=== PATIENT | male | born 1970 | race Caucasian/White ===

== ENCOUNTER 2016-12-27 12:58 | Emergency (ER) | payer MEDICAID ==
[2016-12-27 14:13] LABS: ALBUMIN 3.9 g/dL (3.4-5.0); ALKALINE PHOSPHATASE 64 U/L (46-116); ALT (SGPT) 52 U/L (10-68); BILIRUBIN - TOTAL 0.32 mg/dL (0.2-1.3); CALC OSMOLALITY 277 mosm/kg (275-300); CALCIUM 8.7 mg/dL (8.5-10.1); CARBON DIOXIDE 29.8 mmol/L (21.0-32.0); CHLORIDE - SERUM 104 mmol/L (98-107); GLUCOSE 97 mg/dL (74-106); POTASSIUM - SERUM 4.3 mmol/L (3.5-5.1); PROTEIN - SERUM 7.5 g/dL (6.4-8.2); SODIUM 139 mmol/L (136-145); UREA NITROGEN 13 mg/dL (7-18); eGFR NON AFRICAN AMERICAN 86 mL/min (90-120)
== END 2016-12-27 14:40 | disposition left against medical advice (07) ==
LOC: D.ER 12:58
PROVIDERS: Emergency Medicine
DX: I10 Essential (primary) hypertension (principal); Z72.0 Tobacco use

== ENCOUNTER 2016-12-28 20:53 | Emergency (ER) | payer SELFPAY | END 2016-12-28 23:56 | disposition home or self-care (01) | LOC: D.ER 20:53 | DX: G43.909 Migraine, unspecified, not intractable, without status migrainosus (principal); E86.0 Dehydration; I10 Essential (primary) hypertension; F17.200 Nicotine dependence, unspecified, uncomplicated ==

== ENCOUNTER 2019-06-07 04:25 | Emergency (ER) | payer SELFPAY ==
[~2019-06-07] VITALS: Ht 175.3 cm; Wt 79.5 kg
[2019-06-07 04:37] VITALS: Ht 175.3 cm; Wt 79.5 kg
[2019-06-07 07:05] VITALS: BP 138/93
== END 2019-06-07 06:33 | disposition home or self-care (01) ==
LOC: D.ER 04:25
DX: L50.0 Allergic urticaria (principal)

== ENCOUNTER 2021-03-14 15:58 | Emergency (ER) | payer SELFPAY ==
[~2021-03-14] VITALS: Ht 175.3 cm; Wt 77.3 kg
[~2021-03-14 15:58] MED LIST: COZAAR50 MG PO; FLOMAX0.4 MG PO
[2021-03-14 16:09] VITALS: Ht 175.3 cm; Wt 77.3 kg
[2021-03-14 20:31] LABS: BASOPHILS 0.5 % (0-2); EOSINOPHILS 0.4 % (0-7); HEMATOCRIT 42.2 % (42.0-54.0); HEMOGLOBIN 14.2 g/dL (13.5-17.5); LYMPHOCYTES 9.2 % (15-50); MCH 28.9 pg (26.0-34.0); MCHC 33.6 g/dL (31.0-37.0); MCV 86.1 fL (80.0-100.0); MEAN PLATELET VOLUME 7.8 fL (7.4-10.4); NEUTROPHILS 79.9 % (40-80); PLATELET COUNT 258 10x3/uL (130-400); RDW 13.5 % (11.5-14.5); WBC 15.1 10x3/uL (4.8-10.8)
[2021-03-14 20:36] LABS: CALC OSMOLALITY 281 mosm/kg (275-300); CALCIUM 8.9 mg/dL (8.5-10.1); CARBON DIOXIDE 29.1 mmol/L (21.0-32.0); CHLORIDE - SERUM 102 mmol/L (98-107); CREATININE - SERUM 1.1 mg/dL (0.6-1.3); GLUCOSE 106 mg/dL (74-106); POTASSIUM - SERUM 3.7 mmol/L (3.5-5.1); SODIUM 139 mmol/L (136-145); UREA NITROGEN 23 mg/dL (7-18); eGFR NON AFRICAN AMERICAN 76 mL/min (90-120)
[2021-03-14 20:42] LABS: ALKALINE PHOSPHATASE 61 U/L (30-120); ALT (SGPT) 38 U/L (10-68); BILIRUBIN - TOTAL 0.65 mg/dL (0.2-1.3); PROTEIN - SERUM 7.7 g/dL (6.4-8.2)
[2021-03-14] MEDS ORDERED: NAPROSYN500 MG PO (21:00)
[2021-03-14] MEDS ORDERED: HYDROCODON-ACE1 EAC7 PO (21:00)
[2021-03-14] MEDS ORDERED: CEPHALEXIN500 M1 PO (21:00)
[2021-03-14 21:25] VITALS: BP 156/98
== END 2021-03-14 21:25 | disposition home or self-care (01) ==
LOC: D.ER 15:58
PROVIDERS: Family Medicine
DX: T14.8XXA Other injury of unspecified body region, initial encounter (principal); S39.012A Strain of muscle, fascia and tendon of lower back, initial encounter; S16.1XXA Strain of muscle, fascia and tendon at neck level, initial encounter; S09.90XA Unspecified injury of head, initial encounter; D72.829 Elevated white blood cell count, unspecified; S29.012A Strain of muscle and tendon of back wall of thorax, initial encounter; V19.3XXA Pedal cyclist (driver) (passenger) injured in unspecified nontraffic accident, initial encounter; Y93.9 Activity, unspecified; Y92.9 Unspecified place or not applicable; I10 Essential (primary) hypertension; Z72.0 Tobacco use